=== PATIENT | female | born 1960 | race Caucasian/White ===

== ENCOUNTER 2016-12-14 11:24 | Inpatient (IN) | payer MEDICARE, MEDICAID ==
[2016-12-14 11:55] LABS: AUTOMATED BASOPHIL 0.5 % (0-2); AUTOMATED LYMPH 11.8 % (17-44); AUTOMATED NEUTROPHIL 79.7 % (45-76); MPV 8.4 fL (7.4-10.4)
[2016-12-14 12:04] LABS: BLOOD UREA NITROGEN 25 MG/DL (7-17); CALC CORRECTED 9.3 MG/DL (8.4-10.2); CALCIUM 9.2 MG/DL (8.4-10.2); CALCULATED OSMOLALITY 278 MOs/Kg (270-290); CHLORIDE 106 mEq/L (98-107); GLUCOSE 73 MG/DL (70-99); SODIUM LEVEL 143 mEq/L (137-146); TOTAL PROTEIN 6.8 G/DL (6.3-8.2)
[2016-12-14 12:10] LABS: PARTIAL THROMB. TIME 23.6 SEC (22-35)
--- NOTE | 2016-12-14 12:49 | DIRPT ---
CLINICAL DATA: Intermittent midsternal chest pain for 2 days. Initial encounter. EXAM: PORTABLE CHEST 1 VIEW COMPARISON: PA and lateral chest 09/19/2016. FINDINGS: The lungs are clear. Heart size is normal. There is no pneumothorax or pleural effusion. No focal bony abnormality. IMPRESSION: Negative chest. Electronically Signed By: Matthew Tinsley M.D. On: 12/14/2016 12:47
--- NOTE | 2016-12-14 12:53 | EDPRACDOC ---
- History of Present Illness HPI: HX OF CAD WITH STENTS IN 2005; CATH LAST YEAR IN DEC; TRYING TO LOCATE CATH REPORT. CONTACTED CARDS TO SEE. <Jd Pitt - Last Filed: 12/14/16 13:38> - General Information Information Source: Patient, Digital Marketing Analyst Mode of Arrival: Ambulance - History of Present Illness Onset: 2 DAYS HPI: PT PRESENTS TODAY WITH INTERMITTENT SUBSTERNAL CHEST PAIN X 2 DAYS. PT STATES THAT SHE WAS AT WORK, WHEN SHE FELT VERY NAUSEATED AND THEN DEVELOPED SUBSTERNAL CHEST PRESSURE THAT "SOMETIMES" RADIATES DOWN LEFT ARM. ASSOCIATED SHOB. EPISODES LASTED ABOUT 1 MIN DURATION. PT HAS PMH OF STENT PLACEMENT IN [place] IN [address]. [address] AGUILAR. ALSO PMH OF DM, HLD, SMOKER, HTN. STATES CP AT THIS TIME. DOES NOT APPEAR TO BE IN ACUTE DISTRESS. Chest Pain Location: Reports: Substernal Pain Radiation: Reports: Arm (L) Symptoms Occur: Reports: Suddenly Cardiac Risk Factors: Reports: Smoker, Hyperlipidemia, Hypertension, Diabetes Cardiac History of: Reports: Similar Pain in Past, [place], Cardiac Cath, Stent PE Risk Factors: Reports: None Medications within 24 Hours: Reports: Aspirin, Nitro Prehospital Care: Reports: None Pain Came On: Reports: Suddenly Pain Status: Present Now Pain Description: Reports: Pressure Pain Severity: Moderate Pain Worsens With: Reports: Nothing Pain Improves With: Reports: Nothing Associated Signs and Symptoms: Reports: SOB, Nausea <Rosmery Anthony - Last Filed: 12/14/16 13:41> - General Information Chief Complaint: Chest Pain Stated Complaint: CHEST PAIN Time Seen by Provider: 12/14/16 12:08 Home Medications: Home Medications Clopidogrel Bisulfate [Plavix] 75 mg PO DAILY 10/08/12 Furosemide [Lasix] 40 mg PO BID 10/08/12 Insulin Detemir [Levemir] 80 units SQ BID 10/08/12 Isosorbide Mononitrate [Monoket] 20 mg PO BID 10/08/12 Lisinopril [Zestril] 5 mg PO DAILY 10/08/12 Ranolazine [Ranexa] 500 mg PO BID 04/27/13 Duloxetine [Cymbalta] 60 mg PO DAILY 11/08/13 Docusate Sodium [Colace] 100 mg PO HS 01/09/14 Aspirin (Enteric Coated) [Halfprin] 81 mg PO DAILY 02/08/14 Vitamins, Multiple [Unicap] 1 cap PO DAILY 02/08/14 Atenolol [Tenormin] 50 mg PO QHS 10/31/14 Montelukast Sodium [Singulair] 10 mg PO HS 04/10/15 Cholecalciferol (Vitamin D3) [D3-2000] 2,000 unit PO DAILY 07/12/15 Albuterol Sulfate [Proair Hfa] 2 puff INH Q4-6H PRN 05/29/16 Atorvastatin Calcium [Lipitor] 40 mg PO QHS 05/29/16 Ezetimibe [Zetia] 10 mg PO QHS 05/29/16 Lactobacillus Combo No.10 [Probiotic] 1 cap PO DAILY 05/29/16 Ranitidine [Zantac] 150 mg PO BID 05/29/16 Tramadol HCl [Ultram] 50 mg PO HS PRN 05/29/16 Tizanidine HCl [Zanaflex] 4 mg PO TID PRN 07/04/16 Allopurinol [Zyloprim] 100 mg PO Q48H 12/14/16 Allergies/Adverse Reactions: Allergies Allergy/AdvReac Type Severity Reaction Status Date / Time levofloxacin [From Levaquin] Allergy Intermediate Rash-Locali Verified 12/14/16 11:46 zed prednisone [Prednisone] Allergy Intermediate Hives/BP Verified 12/14/16 11:46 Rises niacin AdvReac Intermediate Upset Verified 12/14/16 11:46 [From Niaspan Stomach Extended-Release] [place]-3 acid Ethyl Esters AdvReac Intermediate Upset Verified 12/14/16 11:46 [From Lovaza] Stomach FISH OIL AdvReac Intermediate Upset Uncoded 12/14/16 11:46 Stomach ED Past Medical History - History Reviewed Yes Nurses notes reviewed and agree except as marked - Patient Medical History Cardiac History: Reports: Coronary Artery Disease, Hypertension, Congestive Heart Failure, Heart Attack, Cardiac Catheterization (STENTS X 2), Hypercholesterolemia, Syncope (2 weeks ago) Respiratory History: Reports: Cough. Denies: Asthma, COPD GI/ History: Reports: Renal Failure, Gastroesophageal Reflux. Denies: Urinary Tract Infection Psychological History: Reports: Anxiety. Denies: Depression, Substance Use Disorder Systemic History: Reports: Anemia (AT YOUNG AGE), Diabetes. Denies: Cancer Additional Past Medical History: CHRONIC PAIN Surgical History: Reports: Appendectomy, Cholecystectomy, Hysterectomy, Cardiac Catheterization (STENTS X 2), Tonsillectomy/Adnoidectomy - Family Medical History Reports: Hypertension, Diabetes, Cardiac Disorders. Denies: Cancer, Stroke - Social Medical History Smoking Status: Heavy tobacco smoker (5 or more cigarettes/day or daily pipe/ cigar) Social History: Denies: Substance Use Disorder <Rosmery Anthony - Last Filed: 12/14/16 13:41> EDM Review of Systems - Review of Systems ROS Negative Except as Marked: Yes All systems reviewed and were negative except as marked Constitutional: No Symptoms Reported Respiratory: Shortness of Breath Cardiovascular: Chest Pain Gastrointestinal: Nausea Genitourinary: No Symptoms Reported Neurological: No Symptoms Reported Musculoskeletal: No Symptoms Reported Integumentary: No Symptoms Reported <Rosmery Anthony - Last Filed: 12/14/16 13:41> - Physical Exam Last recorded Vital Signs: Last Vital Signs Temp 98.4 F 12/14/16 11:35 Pulse 65 12/14/16 13:05 Resp 18 12/14/16 13:05 BP 116/61 12/14/16 13:05 Pulse Ox 94 12/14/16 13:05 Oxygen Pulse Oxygen Saturation 94 O2 Device Oxygen Flow Rate Fraction of Inspired Oxygen ( FIO2) <Jd Pitt - Last Filed: 12/14/16 13:38> - Physical Exam Constitutional: Alert (Awake), No apparent distress Oriented to: Time, Person, Place Last recorded Vital Signs: Last Vital Signs Temp 98.4 F 12/14/16 11:35 Pulse 63 12/14/16 12:35 Resp 18 12/14/16 12:35 BP 106/61 12/14/16 12:35 Pulse Ox 94 12/14/16 12:35 Oxygen Pulse Oxygen Saturation 94 O2 Device Oxygen Flow Rate Fraction of Inspired Oxygen ( FIO2) - HEENT Head: Normal Eye Exam: Normal Neck: Normal, Denies Pain, Midline - Respiratory/Cardiovascular Respiratory: Rales (BIBASILAR) Cardiovascular: Normal - GI Palpation: Normal Tenderness: Non tender - Musculoskeletal Back: Normal Extremities: Normal - Integumentary Skin: Normal Lymphatics: Normal - Neurologic Cerebellar: Normal Mood Description: Normal Thought: Coherent Perception: Normal <Gabrielle,Rosmery K - Last Filed: 12/14/16 13:41> ED Chest Pain Exam - Respiratory/Cardiovascular Respiratory: Normal - CTA Cardiovascular/Chest: Normal Radial Pulse: Normal Chest Palpation: Normal <GabrielleRosmery K - Last Filed: 12/14/16 13:41> - Results 12/14/16 11:35 12/14/16 11:35 WBC 12.9 xk/uL (3.8-10.8) H 12/14/16 11:35 RBC 4.13 xM/uL (4.20-5.40) L 12/14/16 11:35 Hgb 13.0 g/dL (12.0-16.0) 12/14/16 11:35 Hct 38.2 % (36-47) 12/14/16 11:35 MCV 93 fL (81-99) 12/14/16 11:35 MCH 31.5 pg (27-32) 12/14/16 11:35 MCHC 34.0 g/dl (33-36) 12/14/16 11:35 RDW 14.1 % (11.5-14.5) 12/14/16 11:35 Plt Count 258 xk/uL (130-400) 12/14/16 11:35 MPV 8.4 fL (7.4-10.4) 12/14/16 11:35 Neut % (Auto) 79.7 % (45-76) H 12/14/16 11:35 Lymph % (Auto) 11.8 % (17-44) L 12/14/16 11:35 [place] % (Auto) 7.0 % (3-10) 12/14/16 11:35 Eos % (Auto) 1.0 % (0-5) 12/14/16 11:35 Baso % (Auto) 0.5 % (0-2) 12/14/16 11:35 Absolute Neuts (auto) 10.19 xk/uL (1.7-8.2) H 12/14/16 11:35 Absolute Lymphs (auto) 1.42 xk/uL (0.65-4.75) 12/14/16 11:35 PT 10.1 SEC (9.2-11.2) 12/14/16 11:35 INR 1.0 12/14/16 11:35 APTT 23.6 SEC (22-35) 12/14/16 11:35 Sodium 143 mEq/L (137-146) 12/14/16 11:35 Potassium 4.1 mEq/L (3.5-5.1) 12/14/16 11:35 Chloride 106 mEq/L (98-107) 12/14/16 11:35 Carbon Dioxide 30 mMOL/L (22-33) 12/14/16 11:35 Anion Gap 11 mEq/L (8-16) 12/14/16 11:35 BUN 25 MG/DL (7-17) H 12/14/16 11:35 Creatinine 1.20 MG/DL (0.52-1.04) H 12/14/16 11:35 Estimated GFR (MDRD) 46 mL/min (>=60) L 12/14/16 11:35 Glucose 73 MG/DL (70-99) 12/14/16 11:35 Calculated Osmolality 278 MOs/Kg (270-290) 12/14/16 11:35 Calcium 9.2 MG/DL (8.4-10.2) 12/14/16 11:35 Corrected Calcium 9.3 MG/DL (8.4-10.2) 12/14/16 11:35 Total Bilirubin 0.5 MG/DL (0.2-1.3) 12/14/16 11:35 AST 32 IU/L (14-36) 12/14/16 11:35 ALT 49 IU/L (9-52) 12/14/16 11:35 Alkaline Phosphatase 82 IU/L (38-126) 12/14/16 11:35 Troponin I < 0.01 ng/mL (<.04) 12/14/16 11:35 Jxb-J-Hfvxiuhqgos Pept 521 pg/mL (0-900) 12/14/16 11:35 Total Protein 6.8 G/DL (6.3-8.2) 12/14/16 11:35 Albumin 3.9 G/DL (3.5-5.0) 12/14/16 11:35 Lab Results 12/14/16 12/14/16 12/14/16 11:35 11:35 11:35 WBC 12.9 H RBC 4.13 L Hgb 13.0 Hct 38.2 MCV 93 MCH 31.5 MCHC 34.0 RDW 14.1 Plt Count 258 MPV 8.4 Neut % (Auto) 79.7 H Lymph % (Auto) 11.8 L [place] % (Auto) 7.0 Eos % (Auto) 1.0 Baso % (Auto) 0.5 Absolute Neuts (auto) 10.19 H Absolute Lymphs (auto) 1.42 PT 10.1 INR 1.0 APTT 23.6 Sodium 143 Potassium 4.1 Chloride 106 Carbon Dioxide 30 Anion Gap 11 BUN 25 H Creatinine 1.20 H Estimated GFR (MDRD) 46 L Glucose 73 Calculated Osmolality 278 Calcium 9.2 Corrected Calcium 9.3 Total Bilirubin 0.5 AST 32 ALT 49 Alkaline Phosphatase 82 Troponin I < 0.01 Yrf-G-Ltmzivsalss Pept 521 Total Protein 6.8 Albumin 3.9 Laboratory Results - last 24 hr 12/14/16 12/14/16 12/14/16 11:35 11:35 11:35 WBC 12.9 H RBC 4.13 L Hgb 13.0 Hct 38.2 MCV 93 MCH 31.5 MCHC 34.0 RDW 14.1 Plt Count 258 MPV 8.4 Neut % (Auto) 79.7 H Lymph % (Auto) 11.8 L [place] % (Auto) 7.0 Eos % (Auto) 1.0 Baso % (Auto) 0.5 Absolute Neuts (auto) 10.19 H Absolute Lymphs (auto) 1.42 PT 10.1 INR 1.0 APTT 23.6 Sodium 143 Potassium 4.1 Chloride 106 Carbon Dioxide 30 Anion Gap 11 BUN 25 H Creatinine 1.20 H Estimated GFR (MDRD) 46 L Glucose 73 Calculated Osmolality 278 Calcium 9.2 Corrected Calcium 9.3 Total Bilirubin 0.5 AST 32 ALT 49 Alkaline Phosphatase 82 Troponin I < 0.01 Hcv-C-Omfecyywaiy Pept 521 Total Protein 6.8 Albumin 3.9 Laboratory Results 12/14/16 11:35 12/14/16 11:35 <Jd Pitt - Last Filed: 12/14/16 13:38> - Action ASA given in the ED: No - Results 12/14/16 11:35 12/14/16 11:35 WBC 12.9 xk/uL (3.8-10.8) H 12/14/16 11:35 RBC 4.13 xM/uL (4.20-5.40) L 12/14/16 11:35 Hgb 13.0 g/dL (12.0-16.0) 12/14/16 11:35 Hct 38.2 % (36-47) 12/14/16 11:35 MCV 93 fL (81-99) 12/14/16 11:35 MCH 31.5 pg (27-32) 12/14/16 11:35 MCHC 34.0 g/dl (33-36) 12/14/16 11:35 RDW 14.1 % (11.5-14.5) 12/14/16 11:35 Plt Count 258 xk/uL (130-400) 12/14/16 11:35 MPV 8.4 fL (7.4-10.4) 12/14/16 11:35 Neut % (Auto) 79.7 % (45-76) H 12/14/16 11:35 Lymph % (Auto) 11.8 % (17-44) L 12/14/16 11:35 [place] % (Auto) 7.0 % (3-10) 12/14/16 11:35 Eos % (Auto) 1.0 % (0-5) 12/14/16 11:35 Baso % (Auto) 0.5 % (0-2) 12/14/16 11:35 Absolute Neuts (auto) 10.19 xk/uL (1.7-8.2) H 12/14/16 11:35 Absolute Lymphs (auto) 1.42 xk/uL (0.65-4.75) 12/14/16 11:35 PT 10.1 SEC (9.2-11.2) 12/14/16 11:35 INR 1.0 12/14/16 11:35 APTT 23.6 SEC (22-35) 12/14/16 11:35 Sodium 143 mEq/L (137-146) 12/14/16 11:35 Potassium 4.1 mEq/L (3.5-5.1) 12/14/16 11:35 Chloride 106 mEq/L (98-107) 12/14/16 11:35 Carbon Dioxide 30 mMOL/L (22-33) 12/14/16 11:35 Anion Gap 11 mEq/L (8-16) 12/14/16 11:35 BUN 25 MG/DL (7-17) H 12/14/16 11:35 Creatinine 1.20 MG/DL (0.52-1.04) H 12/14/16 11:35 Estimated GFR (MDRD) 46 mL/min (>=60) L 12/14/16 11:35 Glucose 73 MG/DL (70-99) 12/14/16 11:35 Calculated Osmolality 278 MOs/Kg (270-290) 12/14/16 11:35 Calcium 9.2 MG/DL (8.4-10.2) 12/14/16 11:35 Corrected Calcium 9.3 MG/DL (8.4-10.2) 12/14/16 11:35 Total Bilirubin 0.5 MG/DL (0.2-1.3) 12/14/16 11:35 AST 32 IU/L (14-36) 12/14/16 11:35 ALT 49 IU/L (9-52) 12/14/16 11:35 Alkaline Phosphatase 82 IU/L (38-126) 12/14/16 11:35 Troponin I < 0.01 ng/mL (<.04) 12/14/16 11:35 Dzv-B-Uiwolhgqqez Pept 521 pg/mL (0-900) 12/14/16 11:35 Total Protein 6.8 G/DL (6.3-8.2) 12/14/16 11:35 Albumin 3.9 G/DL (3.5-5.0) 12/14/16 11:35 Lab Results 12/14/16 12/14/16 12/14/16 11:35 11:35 11:35 WBC 12.9 H RBC 4.13 L Hgb 13.0 Hct 38.2 MCV 93 MCH 31.5 MCHC 34.0 RDW 14.1 Plt Count 258 MPV 8.4 Neut % (Auto) 79.7 H Lymph % (Auto) 11.8 L [place] % (Auto) 7.0 Eos % (Auto) 1.0 Baso % (Auto) 0.5 Absolute Neuts (auto) 10.19 H Absolute Lymphs (auto) 1.42 PT 10.1 INR 1.0 APTT 23.6 Sodium 143 Potassium 4.1 Chloride 106 Carbon Dioxide 30 Anion Gap 11 BUN 25 H Creatinine 1.20 H Estimated GFR (MDRD) 46 L Glucose 73 Calculated Osmolality 278 Calcium 9.2 Corrected Calcium 9.3 Total Bilirubin 0.5 AST 32 ALT 49 Alkaline Phosphatase 82 Troponin I < 0.01 Jug-E-Yxmyfavutwo Pept 521 Total Protein 6.8 Albumin 3.9 Laboratory Results - last 24 hr 12/14/16 12/14/16 12/14/16 11:35 11:35 11:35 WBC 12.9 H RBC 4.13 L Hgb 13.0 Hct 38.2 MCV 93 MCH 31.5 MCHC 34.0 RDW 14.1 Plt Count 258 MPV 8.4 Neut % (Auto) 79.7 H Lymph % (Auto) 11.8 L [place] % (Auto) 7.0 Eos % (Auto) 1.0 Baso % (Auto) 0.5 Absolute Neuts (auto) 10.19 H Absolute Lymphs (auto) 1.42 PT 10.1 INR 1.0 APTT 23.6 Sodium 143 Potassium 4.1 Chloride 106 Carbon Dioxide 30 Anion Gap 11 BUN 25 H Creatinine 1.20 H Estimated GFR (MDRD) 46 L Glucose 73 Calculated Osmolality 278 Calcium 9.2 Corrected Calcium 9.3 Total Bilirubin 0.5 AST 32 ALT 49 Alkaline Phosphatase 82 Troponin I < 0.01 Spg-L-Inirckcmlfl Pept 521 Total Protein 6.8 Albumin 3.9 Laboratory Results 12/14/16 11:35 12/14/16 11:35 - EKG EKG #1 EKG Time: 11:33 -: Yes EKG interpreted by me Rate: bpm: 60 [place]: Normal Rhythm: NSR Block: None Hypertrophy: None ST: Normal <Rosmery Anthony - Last Filed: 12/14/16 13:41> <Jd Pitt - Last Filed: 12/14/16 13:38> Decision Time to Discharge: 13:40 - Departure Disposition: Admit IP To This Hospital Decision to Admit Time: 13:41 Decision to admit date: 12/14/16 Decision to admit: from ED - Physician Consulted Cardiology Time Called: 13:41 Provider Called: Jarocho Siu Time Coach Returned Call: 13:41 <Rosmery Anthony - Last Filed: 12/14/16 13:41> - Departure Condition: Stable Final Diagnosis: Acute coronary syndrome Instructions: Chest Pain (ED) Referrals: Barb Carbajal MD [Primary Care Provider] - One Week Prescriptions: No Action Lisinopril [Zestril] 5 mg PO DAILY Insulin Detemir [Levemir] 80 units SQ BID Furosemide [Lasix] 40 mg PO BID Isosorbide Mononitrate [Monoket] 20 mg PO BID Clopidogrel Bisulfate [Plavix] 75 mg PO DAILY Ranolazine [Ranexa] 500 mg PO BID Duloxetine [Cymbalta] 60 mg PO DAILY Docusate Sodium [Colace] 100 mg PO HS Aspirin (Enteric Coated) [Halfprin] 81 mg PO DAILY Vitamins, Multiple [Unicap] 1 cap PO DAILY Atenolol [Tenormin] 50 mg PO QHS Montelukast Sodium [Singulair] 10 mg PO HS Cholecalciferol (Vitamin D3) [D3-2000] 2,000 unit PO DAILY Ranitidine [Zantac] 150 mg PO BID Ezetimibe [Zetia] 10 mg PO QHS Albuterol Sulfate [Proair Hfa] 2 puff INH Q4-6H PRN PRN Reason: Shortness Of Breath Lactobacillus Combo No.10 [Probiotic] 1 cap PO DAILY Atorvastatin Calcium [Lipitor] 40 mg PO QHS Tramadol HCl [Ultram] 50 mg PO HS PRN PRN Reason: Pain Tizanidine HCl [Zanaflex] 4 mg PO TID PRN PRN Reason: Muscle Spasms Allopurinol [Zyloprim] 100 mg PO Q48H
[2016-12-14] MEDS ORDERED: NS 1,000 ML IV ONE (12:58)
[2016-12-14] MEDS ORDERED: MORPHINE 4 MG/ML INJECTION IV ONE (12:58)
[2016-12-14] MEDS ORDERED: ONDANSETRON HCL 4 MG/2 ML VIAL IV ONE (13:04)
[2016-12-14] MEDS ORDERED: METOPROLOL TARTRATE 25 MG TAB PO ONE (13:34)
[2016-12-14] MEDS ORDERED: ASPIRIN 325 MG TAB PO ONE (13:34)
[2016-12-14] MEDS ORDERED: NITROGLYCERINE 2 % OINTMENT PACK TOP ONE (13:34)
[2016-12-14] MEDS ORDERED: ENOXAPARIN 80 MG/0.8 ML PFS SQ ONE (14:00)
[2016-12-14] MEDS ORDERED: TIZANIDINE HCL 4 MG PO PRN (14:17)
[2016-12-14] MEDS ORDERED: ALBUTEROL 6.7 GM MDI INH PRN (14:17)
[2016-12-14] MEDS ORDERED: TRAMADOL HCL 50 MG TAB PO PRN (14:17)
--- NOTE | 2016-12-14 14:22 | PCM.CARDCO ---
Consultation Date: 12/14/16 Requesting Physician: Jd Pitt Laborer [place]: Jarocho Siu - History of Present Illness Patient is a 56 years old woman with hypertension and diabetes coronary artery disease apparently in 2005 she had stents implanted to some of her artery I do not have data regarding that intervention. She had another episode of chest pain in December of last year she end up going to [facility] cardiac catheterization was done she was discovered to have completely occluded small nondominant right coronary artery and no intervention was done she was also find to have 40% lad 50% obtuse marginal branch. She presented to the hospital today of because of having chest pain. Apparently yesterday she was sitting and started having chest heaviness as she described no shortness of breath no sweating associated with this sensation she took 3 nitroglycerin and that sensation went away. Then she went to sleep. When she woke up she still got a little tightness in the chest. She did not do anything about it however. She eventually end up going to sleep and did quite well this morning she woke up and she was still having some sensation that is why she decided to come to the hospital. She described it in. Of last month or 2 she had been weak tired exhausted and fairly easily getting short of breath while walking. There is no dizziness no passing out. No palpitations. - Past Medical and Surgical History Cardiac History: Reports: Coronary Artery Disease, Hypertension, Congestive Heart Failure, Heart Attack, Cardiac Catheterization (STENTS X 2), Hypercholesterolemia, Syncope (2 weeks ago) Respiratory History: Reports: Cough. Denies: Asthma, COPD GI/ History: Reports: Renal Failure, Gastroesophageal Reflux. Denies: Urinary Tract Infection Systemic History: Reports: Anemia (AT YOUNG AGE), Diabetes. Denies: Cancer Psychological History: Reports: Anxiety. Denies: Depression, Substance Use Disorder Past Surgical History: Reports: Appendectomy, Cholecystectomy, Hysterectomy, Cardiac Catheterization (STENTS X 2), Tonsillectomy/Adnoidectomy Allergies levofloxacin [From Levaquin] Allergy (Intermediate, Verified 12/14/16 11:46) Rash-Localized prednisone [Prednisone] Allergy (Intermediate, Verified 12/14/16 11:46) Hives/BP Rises CAUSES BP TO RISE, HIVES niacin [From Niaspan Extended-Release] Adverse Reaction (Intermediate, Verified 12/14/16 11:46) Upset Stomach "upset stomach" [place]-3 acid Ethyl Esters [From Lovaza] Adverse Reaction (Intermediate, Verified 12/14/16 11:46) Upset Stomach 'MAKES ME SICK' FISH OIL Adverse Reaction (Intermediate, Uncoded 12/14/16 11:46) Upset Stomach 'MAKES ME SICK' Home Medications Clopidogrel Bisulfate [Plavix] 75 mg PO DAILY 10/08/12 Furosemide [Lasix] 40 mg PO BID 10/08/12 Insulin Detemir [Levemir] 80 units SQ BID 10/08/12 Isosorbide Mononitrate [Monoket] 20 mg PO BID 10/08/12 Lisinopril [Zestril] 5 mg PO DAILY 10/08/12 Ranolazine [Ranexa] 500 mg PO BID 04/27/13 Duloxetine [Cymbalta] 60 mg PO DAILY 11/08/13 Docusate Sodium [Colace] 100 mg PO HS 11/26/13 Aspirin (Enteric Coated) [Halfprin] 81 mg PO DAILY 02/08/14 Vitamins, Multiple [Unicap] 1 cap PO DAILY 02/08/14 Atenolol [Tenormin] 50 mg PO QHS 10/31/14 Montelukast Sodium [Singulair] 10 mg PO HS 04/10/15 Cholecalciferol (Vitamin D3) [D3-2000] 2,000 unit PO DAILY 07/12/15 Albuterol Sulfate [Proair Hfa] 2 puff INH Q4-6H PRN 05/29/16 Atorvastatin Calcium [Lipitor] 40 mg PO QHS 05/29/16 Ezetimibe [Zetia] 10 mg PO QHS 05/29/16 Lactobacillus Combo No.10 [Probiotic] 1 cap PO DAILY 05/29/16 Ranitidine [Zantac] 150 mg PO BID 05/29/16 Tramadol HCl [Ultram] 50 mg PO HS PRN 05/29/16 Tizanidine HCl [Zanaflex] 4 mg PO TID PRN 07/04/16 Allopurinol [Zyloprim] 100 mg PO Q48H 12/14/16 - Social History Travel Outside of [place] in the Last 3 Months?: No Smoking Status: Heavy tobacco smoker (5 or more cigarettes/day or daily pipe/ cigar) Social History: Denies: Substance Use Disorder - Family History Reports: Hypertension, Diabetes, Cardiac Disorders. Denies: Cancer, Stroke - Review of Systems Constitutional: No Symptoms Reported - Physical Exam Constitutional: Alert (Awake), No apparent distress Oriented to: Time, Person, Place Exam: Last Vital Signs Temp 98.4 F 12/14/16 11:35 Pulse 73 12/14/16 14:14 Resp 18 12/14/16 13:35 BP 122/76 12/14/16 14:14 Pulse Ox 94 12/14/16 13:35 Intake & Output 12/13/16 12/14/16 12/14/16 23:59 07:59 15:59 Patient's weight 69.4 kg - HEENT Head: Normal Eye: Normal - Respiratory/Cardiovascular Respiratory: Normal - CTA - GI Palpation: Normal Tenderness: Non tender - Musculoskeletal Back: Normal Extremities: Normal - Integumentary Skin: Normal Lymphatics: Normal - Neurologic Cerebellar: Normal Mood Description: Normal Thought: Coherent Perception: Normal - Other Exam Other Exam Findings: General Appearance: Well developed. Well nourished. In no acute distress. Lungs: Chest was not overinflated. Clear to auscultation. Cardiovascular: Jugular Venous Distention: JVD not increased. Heart Rate And Rhythm: Normal. Heart Sounds: Normal. Murmurs: No murmurs were heard. Carotid Arteries: Carotid pulses were normal. No bruit in the carotid artery. Edema: Not present. Lower extremities pulses normal (including femoral popliteal and dorsalis pedis) . Musculoskeletal System: General/bilateral: No cyanosis of the fingers. Neurological: Oriented to time, place, and person. Nails: No clubbing of the fingernails. - Lab Results Laboratory Results - last 24 hr 12/14/16 12/14/16 12/14/16 11:35 11:35 11:35 WBC 12.9 H RBC 4.13 L Hgb 13.0 Hct 38.2 MCV 93 MCH 31.5 MCHC 34.0 RDW 14.1 Plt Count 258 MPV 8.4 Neut % (Auto) 79.7 H Lymph % (Auto) 11.8 L [place] % (Auto) 7.0 Eos % (Auto) 1.0 Baso % (Auto) 0.5 Absolute Neuts (auto) 10.19 H Absolute Lymphs (auto) 1.42 PT 10.1 INR 1.0 APTT 23.6 Sodium 143 Potassium 4.1 Chloride 106 Carbon Dioxide 30 Anion Gap 11 BUN 25 H Creatinine 1.20 H Estimated GFR (MDRD) 46 L Glucose 73 Calculated Osmolality 278 Calcium 9.2 Corrected Calcium 9.3 Total Bilirubin 0.5 AST 32 ALT 49 Alkaline Phosphatase 82 Troponin I < 0.01 Vzr-W-Oorokfndxtu Pept 521 Total Protein 6.8 Albumin 3.9 - Diagnostic Findings Electrocardiogram showed normal sinus rhythm normal P interval normal QRS complex duration morphology, possibility of anterior wall myocardial infarction age undetermined no ST-T segment changes. - Assessment/Plan (1) Acute coronary syndrome I24.9 - ACUTE ISCHEMIC HEART DISEASE, UNSPECIFIED Acute Present on Admission: Yes Comment: Patient is asymptomatic right now. His symptomatology is somewhat concerning luckily 1st biochemical markers are normal she does not have any acute EKG changes. She will be admitted to the hospital I will continue with aspirin I will put her on Lovenox. Will continue with statin beta-tereza. Will collect cardiac enzymes as well as troponin I. If biochemical markers became abnormal she will have cardiac catheterization if not will do stress testing tomorrow. (2) Coronary artery disease involving [place] coronary artery I25.10 - ATHSCL HEART DISEASE OF [place] CORONARY ARTERY W/O ANG PCTRS Chronic N with other forms of angina Comment: Chronic problem. She has no to have completely occluded nondominant right coronary artery however she also had up to 40% narrowing of LAD on last cardiac catheterization from December of last year. She need to be aggressively managed her risk factor need to be aggressively corrected. Will try to keep her blood pressure under control her diabetes best control possible continue with statin she need to quit smoking. Workup for this event is described above. (3) Smoking F17.200 - NICOTINE DEPENDENCE, UNSPECIFIED, UNCOMPLICATED Acute Comment: Obviously she must quit. (4) Diabetes mellitus E11.9 - TYPE 2 DIABETES MELLITUS WITHOUT COMPLICATIONS Chronic Present on Admission: Yes D D D D P D D L C Comment: I will ask Internal Medicine team to address this problem (5) Hypertension I10 - ESSENTIAL (PRIMARY) HYPERTENSION Chronic essential hypertension I10 - Essential (primary) hypertension Comment: Will continue all medications. Will watch her blood pressure and adjust accordingly.
[2016-12-14] MEDS ORDERED: TIZANIDINE 2 MG TAB PO PRN (14:26)
[2016-12-14] MEDS ORDERED: NITROGLYCERINE 0.4 MG TAB SL PRN (14:27)
[2016-12-14] MEDS ORDERED: MORPHINE 2 MG/ML INJECTION IV PRN (14:27)
[2016-12-14] MEDS ORDERED: Pharmacy Order Set Alert SCH (15:00)
[2016-12-14] MEDS ORDERED: INSULIN DETEMIR 100 UNITS/ML PEN SQ SCH (15:00)
[2016-12-14] MEDS ORDERED: Nitroglycerin D5W 50,000 MCG/250 ML IVBOT IV SCH (15:00)
--- NOTE | 2016-12-14 15:12 | HIMCONSMED ---
Consultation Date: 12/14/16 Requesting Physician: Jarocho Peña Consulting Doctor: Rashmi Huddleston Consult Reason: Diabetes Management Patient is a 56 years old woman with hypertension and diabetes coronary artery disease apparently in 2005 she had stents implanted to some of her artery. She had another episode of chest pain in December of last year she end up going to [facility] cardiac catheterization was done she was discovered to have completely occluded small nondominant right coronary artery and no intervention was done she was also find to have 40% lad 50% obtuse marginal branch. She presented to the hospital today of because of having chest pain. Apparently yesterday she was sitting and started having chest heaviness as she described no shortness of breath no sweating associated with this sensation she took 3 nitroglycerin and that sensation went away. Then she went to sleep. When she woke up she still got a little tightness in the chest. She did not do anything about it however. She eventually end up going to sleep and did quite well this morning she woke up and she was still having some sensation that is why she decided to come to the hospital. She described it in. Of last month or 2 she had been weak tired exhausted and fairly easily getting short of breath while walking. There is no dizziness no passing out. No palpitations. I have been asked by Dr. PEÑA to see the patient for diabetes management. She states that her sugars get as high as 350 range but usually run less than 200. I do not see a previous hemoglobin A1c or urinary microalbumin on her in our system. Chief Complaint: Diabetes management - Past Medical and Surgical History Cardiac History: Reports: Coronary Artery Disease, Hypertension, Congestive Heart Failure, Heart Attack, Cardiac Catheterization (STENTS X 2), Hypercholesterolemia, Syncope (2 weeks ago) Respiratory History: Reports: Cough. Denies: Asthma, COPD GI/ History: Reports: Renal Failure, Gastroesophageal Reflux. Denies: Urinary Tract Infection Systemic History: Reports: Anemia (AT YOUNG AGE), Diabetes. Denies: Cancer Psychological History: Reports: Anxiety. Denies: Depression, Substance Use Disorder Past Surgical History: Reports: Appendectomy, Cholecystectomy, Hysterectomy, Cardiac Catheterization (STENTS X 2), Tonsillectomy/Adnoidectomy Allergies levofloxacin [From Levaquin] Allergy (Intermediate, Verified 12/14/16 11:46) Rash-Localized prednisone [Prednisone] Allergy (Intermediate, Verified 12/14/16 11:46) Hives/BP Rises CAUSES BP TO RISE, HIVES niacin [From Niaspan Extended-Release] Adverse Reaction (Intermediate, Verified 12/14/16 11:46) Upset Stomach "upset stomach" [place]-3 acid Ethyl Esters [From Lovaza] Adverse Reaction (Intermediate, Verified 12/14/16 11:46) Upset Stomach 'MAKES ME SICK' FISH OIL Adverse Reaction (Intermediate, Uncoded 12/14/16 11:46) Upset Stomach 'MAKES ME SICK' Home Medications Clopidogrel Bisulfate [Plavix] 75 mg PO DAILY 10/08/12 Furosemide [Lasix] 40 mg PO BID 10/08/12 Insulin Detemir [Levemir] 80 units SQ BID 10/08/12 Isosorbide Mononitrate [Monoket] 20 mg PO BID 10/08/12 Lisinopril [Zestril] 5 mg PO DAILY 10/08/12 Ranolazine [Ranexa] 500 mg PO BID 04/27/13 Duloxetine [Cymbalta] 60 mg PO DAILY 11/08/13 Docusate Sodium [Colace] 100 mg PO HS 11/26/13 Aspirin (Enteric Coated) [Halfprin] 81 mg PO DAILY 02/08/14 Vitamins, Multiple [Unicap] 1 cap PO DAILY 02/08/14 Atenolol [Tenormin] 50 mg PO QHS 10/31/14 Montelukast Sodium [Singulair] 10 mg PO HS 04/10/15 Cholecalciferol (Vitamin D3) [D3-2000] 2,000 unit PO DAILY 07/12/15 Albuterol Sulfate [Proair Hfa] 2 puff INH Q4-6H PRN 05/29/16 Atorvastatin Calcium [Lipitor] 40 mg PO QHS 05/29/16 Ezetimibe [Zetia] 10 mg PO QHS 05/29/16 Lactobacillus Combo No.10 [Probiotic] 1 cap PO DAILY 05/29/16 Ranitidine [Zantac] 150 mg PO BID 05/29/16 Tramadol HCl [Ultram] 50 mg PO HS PRN 05/29/16 Tizanidine HCl [Zanaflex] 4 mg PO TID PRN 07/04/16 Allopurinol [Zyloprim] 100 mg PO Q48H 12/14/16 - Social History Travel Outside of [place] in the Last 3 Months?: No Smoking Status: Heavy tobacco smoker (5 or more cigarettes/day or daily pipe/ cigar) Social History: Denies: Substance Use Disorder - Family History Reports: Hypertension, Diabetes, Cardiac Disorders. Denies: Cancer, Stroke - Review of Systems Constitutional: No Symptoms Reported (No Fever, chills, wt loss/gain, diaphoresis,fatigue/malaise.) Eyes: No Symptoms Reported (No blurry vision, visual changes, eye pain, or eye redness.) Ears: No Symptoms Reported (No ear pain or discharge) Throat/Neck: No Symptoms Reported (No throat pain or swelling.No oropharyngeal lesions or erythema.) Respiratory: No Symptoms Reported (No cough, wheezing, or shortness of breath.) Cardiovascular: Chest Pain Gastrointestinal: No Symptoms Reported (No abdominal pain, nausea, vomiting, diarrhea, constipation, or bloody stool.) Genitourinary: No Symptoms Reported (No dysuria or hematuria.) Neurological: No Symptoms Reported (No headache, dizziness, seizures, or focal weakness.) Musculoskeletal:: No Symptoms Reported Integumentary: No Symptoms Reported (no rashes or lesions) Allergic/Immunologic: No Symptoms Reported (no rashes or lesions) Hematologic: No Symptoms Reported (No chronic anemia, bleeding, or easy bruising.), Other (Lymphatics- no lymph node swelling or pain.) Endocrine: No Symptoms Reported (No thyroid issues, polyuria, or polydipsia.) Psychiatric: No Symptoms Reported (Fully oriented, with normal and appropriate affect.) - Physical Exam Vital Signs: Initial Vitals Temperature 98.4 F 12/14/16 11:35 Pulse Rate 60 12/14/16 11:35 Respiratory Rate 18 12/14/16 11:35 Blood Pressure 136/58 L 12/14/16 11:35 Pulse Oxygen Saturation 95 12/14/16 11:35 Constitutional: No apparent distress, Well nourished, Well appearing Oriented to: Time, Person, Place - HEENT Head: Normal (normocephalic, atraumatic.), Other (No cervical lymphadenopathy. No supraclavicular lymphadenopathy. Neck: No palpable mass, supple , trachea midline.) Eye: Normal (pupils equal, reactive to light, and round; EOMI, Sclera white) Oropharynx: Normal (Pharynx: Moist without exudate,Gums-no swelling, No oropharyngeal lesions or erythema, Mucous membranes are dry.) Nose: No Symptoms Reported (septum midline, Nares patent, without discharge or bleeding.) Respiratory: Normal - CTA (Clear to auscultation bilaterally. No wheezing, rales , rhonchi. Chest wall movements are symmetric. No use of accessory muscles to breathe.) Cardiovascular: Normal (RRR , Normal S1, S2. No murmurs, rubs, or gallops. PMI non-displaced. Carotids: no carotid bruits. No bradycardia or tachycardia. DP pulses 2+ bilaterally.) - GI Auscultation: Normal (normal active sounds) Palpation: Normal (Soft,non distended,nontender. No hepatosplenomegaly.) Tenderness: Non tender (No rebound or guarding) Contreras's Sign: Negative - Musculoskeletal Back: Normal (Non-Tender) Extremities: Normal (Normal tone, DP pulses 2+ bilaterally, No cyanosis or edema bilaterally, FROM bilaterally.) - Integumentary Skin: Normal (Clean, dry, and intact. No rashes. No lesions.) Lymphatics: Normal (No cervical lymphadenopathy. No supraclavicular lymphadenopathy.) - Neurologic Memory Impaired: Normal Motor Function: Normal (Motor 5/5 throughout.Normal tone, Pulses 2+ No cyanosis or edema, FROM) Cranial Nerve: Normal (CN II-XII intact sensation, strength 5/5) Cerebellar: Normal (Babinski: toes downgoing bilaterally. Intact Finger to nose. Sensory grossly intact to light touch. Intact rapid alternating movements bilaterally. No pronator drift.) Mood Description: Normal (Fully oriented. Normal and appropriate affect.) Perception: Normal (Normal and appropriate affect.) - Lab Results Laboratory Results - last 24 hr 12/14/16 12/14/16 12/14/16 11:35 11:35 11:35 WBC 12.9 H RBC 4.13 L Hgb 13.0 Hct 38.2 MCV 93 MCH 31.5 MCHC 34.0 RDW 14.1 Plt Count 258 MPV 8.4 Neut % (Auto) 79.7 H Lymph % (Auto) 11.8 L [place] % (Auto) 7.0 Eos % (Auto) 1.0 Baso % (Auto) 0.5 Absolute Neuts (auto) 10.19 H Absolute Lymphs (auto) 1.42 PT 10.1 INR 1.0 APTT 23.6 Sodium 143 Potassium 4.1 Chloride 106 Carbon Dioxide 30 Anion Gap 11 BUN 25 H Creatinine 1.20 H Estimated GFR (MDRD) 46 L Glucose 73 Calculated Osmolality 278 Calcium 9.2 Corrected Calcium 9.3 Total Bilirubin 0.5 AST 32 ALT 49 Alkaline Phosphatase 82 Troponin I < 0.01 Prl-Z-Jwdzkjuutkh Pept 521 Total Protein 6.8 Albumin 3.9 12/14/16 14:34 WBC RBC Hgb Hct MCV MCH MCHC RDW Plt Count MPV Neut % (Auto) Lymph % (Auto) [place] % (Auto) Eos % (Auto) Baso % (Auto) Absolute Neuts (auto) Absolute Lymphs (auto) PT INR APTT Sodium Potassium Chloride Carbon Dioxide Anion Gap BUN Creatinine Estimated GFR (MDRD) Glucose Calculated Osmolality Calcium Corrected Calcium Total Bilirubin AST ALT Alkaline Phosphatase Troponin I < 0.01 Ubc-Q-Jajngpvryms Pept Total Protein Albumin - Diagnostic Findings PORTABLE CHEST 1 VIEW COMPARISON: PA and lateral chest 09/19/2016. FINDINGS: The lungs are clear. Heart size is normal. There is no pneumothorax or pleural effusion. No focal bony abnormality. IMPRESSION: Negative chest. Electronically Signed By: Matthew Tinsley M.D. On: 12/14/2016 12:47 Electrocardiogram showed normal sinus rhythm normal P interval normal QRS complex duration morphology, possibility of anterior wall myocardial infarction age undetermined no ST-T segment changes. Personally viewed by me. Stress test from December of 2015: NM LEXISCAN CARDIOLITE TECHNIQUE: Cardiolite cardiac stress Test Lexiscan protocol RADIOPHARMACEUTICALS: Eight in 25 mCi TC 99 M Cardiolite COMPARISON: None. FINDINGS: A Cardiolite stress test Lexiscan protocol was performed. The stress portion of the test was supervised by Dr Villalta. I reviewed the images with him. There is fixed defect in inferior lateral wall with mild hypokinesia probable due to scarring. No definite evidence of ischemia. Left ventricle ejection fraction is 44%. Normal contractility. IMPRESSION: There is fixed defect in inferior lateral wall with mild hypokinesia probable due to scarring. No definite evidence of ischemia. Left ventricle ejection fraction is 44%. Normal contractility. Electronically Signed By: Hugo Osorio M.D. On: 01/10/2016 13:19 - Assessment (1) Diabetes mellitus type 2, uncontrolled, with complications E11.8 - TYPE 2 DIABETES MELLITUS WITH UNSPECIFIED COMPLICATIONS; E11.65 - TYPE 2 DIABETES MELLITUS WITH HYPERGLYCEMIA Chronic Present on Admission: Yes Qualifiers: Diabetes mellitus intermediate accountant insulin use: with intermediate accountant use Qualified Code( s): E11.8 - Type 2 diabetes mellitus with unspecified complications; E11.65 - Type 2 diabetes mellitus with hyperglycemia; Z79.4 - MCFP (current) use of insulin Patient reports episodes of hyperglycemia at home. Will check hemoglobin A1c and urinary microalbumin. At present time will continue home dose insulin dosing but will check finger stick blood glucoses a.c. and HS and cover with sliding scale. (2) Chest pain R07.9 - CHEST PAIN, UNSPECIFIED Acute Present on Admission: Yes Qualifiers: Chest pain type: chest pain due to myocardial ischemia Ischemic chest pain type: unstable angina pectoris Qualified Code(s): I20.0 - Unstable angina Patient for evaluation by Dr. PEÑA with serial enzymes EKG and determine a tejeda the next near future regarding stress testing versus cardiac catheterization. (3) UNSTABLE ANGINA I20.0 - UNSTABLE ANGINA Active Present on Admission: Yes Continue to monitor as above. (4) CHF with cardiomyopathy I50.9 - HEART FAILURE, UNSPECIFIED; I42.9 - CARDIOMYOPATHY, UNSPECIFIED Chronic Present on Admission: Yes Patient with known ejection fraction of 44% on stress testing last year cardiomyopathy is likely due to ischemia and hypokinesia from previous UT (5) Hypertension I10 - ESSENTIAL (PRIMARY) HYPERTENSION Chronic Present on Admission: Yes Qualifiers: Hypertension type: essential hypertension Blood pressure is acceptable continue to monitor (6) Smoking F17.200 - NICOTINE DEPENDENCE, UNSPECIFIED, UNCOMPLICATED Acute Present on Admission: Yes Despite her coronary disease patient continues to enjoy smoking will discuss this with her at length in the a.m. once she is settled in her room. - Plan Check fingerstick blood glucoses a.c. and HS cover with sliding scale insulin coverage check hemoglobin A1c and urinary microalbumin. and continue home diabetes medicines. Case Care Discussed with: Patient, Nursing Staff Total Time: 55 minutes Critical Care: No Couseling Time (>50% in counseling/coordination): No
[2016-12-14] MEDS ORDERED: GLUCAGON 1 MG VIAL SQ PRN (15:27)
[2016-12-14] MEDS ORDERED: GLUCOSE (ORAL GEL) 15 GM TUBE PO PRN (15:27)
[2016-12-14] MEDS ORDERED: DEXTROSE 25 GM/50 ML PFS IV PRN (15:27)
[2016-12-14] MEDS: NITROGLYCERINE 2 % OINTMENT PACK TOP SCH (18:29)
[2016-12-14] MEDS: ISOSORBIDE MONONITRATE 20 MG TAB PO SCH (18:30)
[2016-12-14] MEDS: REGULAR INSULIN 100 UNITS/ML - 3 ML VIAL SQ SCH ×2 (18:32→20:13)
[2016-12-14] MEDS: FUROSEMIDE 40 MG TAB PO SCH (18:33)
[2016-12-14 18:34] LABS: CPK TOTAL WITH POSSIBLE MB 49 IU/L (30-134)
[2016-12-14] MEDS ORDERED: Vaccine Screening Complete SCH (19:00)
[2016-12-14] MEDS ORDERED: ACETAMINOPHEN 325 MG/TAB TABLET PO PRN (19:41)
[2016-12-14] MEDS: RANOLAZINE 500 MG EXT RELEASE TAB PO SCH (19:51)
[2016-12-14] MEDS: RANITIDINE 150 MG TAB PO SCH (20:12)
[2016-12-14] MEDS: INSULIN DETEMIR 100 UNITS/ML PEN SQ SCH (20:13)
[2016-12-14] MEDS ORDERED: INSULIN DETEMIR 80 UNIT SQ SCH (21:00)
[2016-12-14] MEDS ORDERED: MONTELUKAST SODIUM 10 MG TAB PO SCH (21:00)
[2016-12-14] MEDS ORDERED: Docusate Sodium 100 MG CAP PO SCH (21:00)
[2016-12-14] MEDS ORDERED: ATENOLOL 50 MG TAB PO SCH (21:00)
[2016-12-14] MEDS ORDERED: ATORVASTATIN 40 MG TAB PO SCH (21:00)
[2016-12-14] MEDS ORDERED: EZETIMIBE 10 MG TAB PO SCH (21:00)
[2016-12-14] MEDS ORDERED: ISOSORBIDE MONONITRATE 20 MG PO SCH (21:00)
[2016-12-14 21:16] LABS: CPK TOTAL WITH POSSIBLE MB 50 IU/L (30-134)
[2016-12-15 01:07] LABS: LEUKOCYTES/URINE NEG (NEGATIVE); NITRITE/URINE NEG (NEGATIVE); URINE OCCULT BLOOD NEG (NEG/TRACE); WBC/URINE 0-2 (0-5)
[2016-12-15 01:08] LABS: CPK TOTAL WITH POSSIBLE MB 47 IU/L (30-134)
[2016-12-15 01:42] LABS: LDL (calc.) 29.2 MG/DL (<100); VLDL (calc.) 47.8 MG/DL (5-40)
[2016-12-15] MEDS ORDERED: ENOXAPARIN 80 MG/0.8 ML PFS SQ SCH (02:00)
[2016-12-15] MEDS: ISOSORBIDE MONONITRATE 20 MG TAB PO SCH (04:10)
[2016-12-15] MEDS: NITROGLYCERINE 2 % OINTMENT PACK TOP SCH ×2 (04:10→11:22)
[2016-12-15] MEDS: REGULAR INSULIN 100 UNITS/ML - 3 ML VIAL SQ SCH ×2 (04:15→11:54)
[2016-12-15 04:48] VITALS: BMI 25.9
[2016-12-15] MEDS ORDERED: SODIUM CHLORIDE 0.9% 10 ML FLUSH FLUSH ONE (08:00)
[2016-12-15] MEDS ORDERED: REGADENOSON 0.4 MG/5 ML SYRINGE IV ONE (08:00)
[2016-12-15] MEDS ORDERED: LACTOBACILLUS COMBO NO 10 PO SCH (09:00)
[2016-12-15] MEDS ORDERED: CLOPIDOGREL 75 MG TAB PO SCH (09:00)
[2016-12-15] MEDS ORDERED: CHOLECALCIFEROL 2000 UNIT PO SCH (09:00)
[2016-12-15] MEDS ORDERED: LISINOPRIL 5 MG TAB PO SCH (09:00)
[2016-12-15] MEDS ORDERED: ALLOPURINOL 100 MG TAB PO SCH (09:00)
[2016-12-15] MEDS ORDERED: DULOXETINE 60 MG CAPSULE PO SCH (09:00)
[2016-12-15 09:01] LABS: AUTOMATED BASOPHIL 0.4 % (0-2); AUTOMATED EOSINOPHIL 1.5 % (0-5); AUTOMATED LYMPH 21.7 % (17-44); AUTOMATED MONOCYTE 7.3 % (3-10); AUTOMATED NEUTROPHIL 69.1 % (45-76); MPV 8.8 fL (7.4-10.4)
[2016-12-15 09:12] LABS: BLOOD UREA NITROGEN 25 MG/DL (7-17); CALCIUM 8.6 MG/DL (8.4-10.2); CALCULATED OSMOLALITY 280 MOs/Kg (270-290); CHLORIDE 108 mEq/L (98-107); GLUCOSE 111 MG/DL (70-99); SODIUM LEVEL 143 mEq/L (137-146)
--- NOTE | 2016-12-15 09:43 | PCM.CARD ---
- Subjective Reason for visit: Follow up chest pain Doing fine denies have any chest pain. Vital Signs: Last Vital Signs Temp 98.3 F 12/15/16 08:00 Pulse 56 L 12/15/16 08:00 Resp 18 12/15/16 08:00 BP 109/59 L 12/15/16 08:00 Pulse Ox 98 12/15/16 08:00 PE: General Appearance: Well developed. Well nourished. In no acute distress. Lungs: Chest was not overinflated. Clear to auscultation. Cardiovascular: Jugular Venous Distention: JVD not increased. Heart Rate And Rhythm: Normal. Heart Sounds: Normal. Murmurs: No murmurs were heard. Carotid Arteries: Carotid pulses were normal. No bruit in the carotid artery. Edema: Not present. Lower extremities pulses normal (including femoral popliteal and dorsalis pedis) . Musculoskeletal System: General/bilateral: No cyanosis of the fingers. Neurological: Oriented to time, place, and person. Nails: No clubbing of the fingernails. Lab/DI Results Reviewed: Laboratory Results - last 24 hr 12/14/16 12/14/16 12/14/16 11:35 11:35 11:35 WBC 12.9 H RBC 4.13 L Hgb 13.0 Hct 38.2 MCV 93 MCH 31.5 MCHC 34.0 RDW 14.1 Plt Count 258 MPV 8.4 Neut % (Auto) 79.7 H Lymph % (Auto) 11.8 L [place] % (Auto) 7.0 Eos % (Auto) 1.0 Baso % (Auto) 0.5 Absolute Neuts (auto) 10.19 H Absolute Lymphs (auto) 1.42 PT 10.1 INR 1.0 APTT 23.6 Sodium 143 Potassium 4.1 Chloride 106 Carbon Dioxide 30 Anion Gap 11 BUN 25 H Creatinine 1.20 H Estimated GFR (MDRD) 46 L Glucose 73 POC Capillary Glucose Hemoglobin A1c Calculated Osmolality 278 Calcium 9.2 Corrected Calcium 9.3 Magnesium Total Bilirubin 0.5 AST 32 ALT 49 Alkaline Phosphatase 82 Creatine Kinase Troponin I < 0.01 Cmp-E-Fwornjmzmfc Pept 521 Total Protein 6.8 Albumin 3.9 Triglycerides Cholesterol LDL Cholesterol, Calc VLDL Cholesterol, Calc HDL Cholesterol Cholesterol/HDL Ratio Urine Color Urine Clarity Urine pH Ur Specific Maria Stein Urine Protein Urine Glucose (UA) Urine Ketones Urine Occult Blood Urine Nitrite Urine Bilirubin Urine Urobilinogen Ur Leukocyte Esterase Urine WBC Ur Epithelial Cells Urine Bacteria 12/14/16 12/14/16 12/14/16 11:35 14:00 14:34 WBC RBC Hgb Hct MCV MCH MCHC RDW Plt Count MPV Neut % (Auto) Lymph % (Auto) [place] % (Auto) Eos % (Auto) Baso % (Auto) Absolute Neuts (auto) Absolute Lymphs (auto) PT INR APTT Sodium Potassium Chloride Carbon Dioxide Anion Gap BUN Creatinine Estimated GFR (MDRD) Glucose POC Capillary Glucose 61 L Hemoglobin A1c 6.9 H Calculated Osmolality Calcium Corrected Calcium Magnesium Total Bilirubin AST ALT Alkaline Phosphatase Creatine Kinase Troponin I < 0.01 Nca-M-Eptxcnknuss Pept Total Protein Albumin Triglycerides Cholesterol LDL Cholesterol, Calc VLDL Cholesterol, Calc HDL Cholesterol Cholesterol/HDL Ratio Urine Color Urine Clarity Urine pH Ur Specific Maria Stein Urine Protein Urine Glucose (UA) Urine Ketones Urine Occult Blood Urine Nitrite Urine Bilirubin Urine Urobilinogen Ur Leukocyte Esterase Urine WBC Ur Epithelial Cells Urine Bacteria 12/14/16 12/14/16 12/14/16 15:12 17:14 17:40 WBC RBC Hgb Hct MCV MCH MCHC RDW Plt Count MPV Neut % (Auto) Lymph % (Auto) [place] % (Auto) Eos % (Auto) Baso % (Auto) Absolute Neuts (auto) Absolute Lymphs (auto) PT INR APTT Sodium Potassium Chloride Carbon Dioxide Anion Gap BUN Creatinine Estimated GFR (MDRD) Glucose POC Capillary Glucose 233 H 176 H Hemoglobin A1c Calculated Osmolality Calcium Corrected Calcium Magnesium Total Bilirubin AST ALT Alkaline Phosphatase Creatine Kinase 49 Troponin I < 0.01 Qil-H-Qdjoifxrpey Pept Total Protein Albumin Triglycerides Cholesterol LDL Cholesterol, Calc VLDL Cholesterol, Calc HDL Cholesterol Cholesterol/HDL Ratio Urine Color Urine Clarity Urine pH Ur Specific Maria Stein Urine Protein Urine Glucose (UA) Urine Ketones Urine Occult Blood Urine Nitrite Urine Bilirubin Urine Urobilinogen Ur Leukocyte Esterase Urine WBC Ur Epithelial Cells Urine Bacteria 12/14/16 12/14/16 12/15/16 20:01 20:50 00:15 WBC RBC Hgb Hct MCV MCH MCHC RDW Plt Count MPV Neut % (Auto) Lymph % (Auto) [place] % (Auto) Eos % (Auto) Baso % (Auto) Absolute Neuts (auto) Absolute Lymphs (auto) PT INR APTT Sodium Potassium Chloride Carbon Dioxide Anion Gap BUN Creatinine Estimated GFR (MDRD) Glucose POC Capillary Glucose 193 H Hemoglobin A1c Calculated Osmolality Calcium Corrected Calcium Magnesium Total Bilirubin AST ALT Alkaline Phosphatase Creatine Kinase 50 Troponin I < 0.01 Nzt-Y-Sbijrvzcdlr Pept Total Protein Albumin Triglycerides Cholesterol LDL Cholesterol, Calc VLDL Cholesterol, Calc HDL Cholesterol Cholesterol/HDL Ratio Urine Color Pale yellow Urine Clarity Clear Urine pH 5.0 Ur Specific Maria Stein 1.005 Urine Protein Neg Urine Glucose (UA) Neg Urine Ketones Neg Urine Occult Blood Neg Urine Nitrite Neg Urine Bilirubin Neg Urine Urobilinogen <2.0 Ur Leukocyte Esterase Neg Urine WBC 0-2 Ur Epithelial Cells Occ Urine Bacteria Few 12/15/16 12/15/16 12/15/16 00:50 00:50 04:14 WBC RBC Hgb Hct MCV MCH MCHC RDW Plt Count MPV Neut % (Auto) Lymph % (Auto) [place] % (Auto) Eos % (Auto) Baso % (Auto) Absolute Neuts (auto) Absolute Lymphs (auto) PT INR APTT Sodium Potassium Chloride Carbon Dioxide Anion Gap BUN Creatinine Estimated GFR (MDRD) Glucose POC Capillary Glucose 100 H Hemoglobin A1c Calculated Osmolality Calcium Corrected Calcium Magnesium Total Bilirubin AST ALT Alkaline Phosphatase Creatine Kinase 47 Troponin I < 0.01 Sdi-L-Uedtqlxitar Pept Total Protein Albumin Triglycerides 239 H Cholesterol 101 LDL Cholesterol, Calc 29.2 VLDL Cholesterol, Calc 47.8 H HDL Cholesterol 24.0 L Cholesterol/HDL Ratio 4.2 Urine Color Urine Clarity Urine pH Ur Specific Maria Stein Urine Protein Urine Glucose (UA) Urine Ketones Urine Occult Blood Urine Nitrite Urine Bilirubin Urine Urobilinogen Ur Leukocyte Esterase Urine WBC Ur Epithelial Cells Urine Bacteria 12/15/16 12/15/16 08:20 08:20 WBC 7.8 RBC 3.86 L Hgb 12.0 Hct 36.0 MCV 93 MCH 31.2 MCHC 33.4 RDW 14.6 H Plt Count 204 MPV 8.8 Neut % (Auto) 69.1 Lymph % (Auto) 21.7 [place] % (Auto) 7.3 Eos % (Auto) 1.5 Baso % (Auto) 0.4 Absolute Neuts (auto) 5.38 Absolute Lymphs (auto) 1.64 PT INR APTT Sodium 143 Potassium 4.5 Chloride 108 H Carbon Dioxide 30 Anion Gap 10 BUN 25 H Creatinine 1.10 H Estimated GFR (MDRD) 51 L Glucose 111 H POC Capillary Glucose Hemoglobin A1c Calculated Osmolality 280 Calcium 8.6 Corrected Calcium Magnesium 2.00 Total Bilirubin AST ALT Alkaline Phosphatase Creatine Kinase Troponin I Kts-X-Bnxqliczbjm Pept Total Protein Albumin Triglycerides Cholesterol LDL Cholesterol, Calc VLDL Cholesterol, Calc HDL Cholesterol Cholesterol/HDL Ratio Urine Color Urine Clarity Urine pH Ur Specific Maria Stein Urine Protein Urine Glucose (UA) Urine Ketones Urine Occult Blood Urine Nitrite Urine Bilirubin Urine Urobilinogen Ur Leukocyte Esterase Urine WBC Ur Epithelial Cells Urine Bacteria - Assessment/Plan (1) Acute coronary syndrome Acute I24.9 - ACUTE ISCHEMIC HEART DISEASE, UNSPECIFIED Present on Admission: Yes Comment/Plan: Chest pain free. EKG no new changes biochemical markers negative. Will do stress test trying to determine if she has significant inducible ischemia. does have chronically occluded small nondominant right coronary artery. In the meantime continue medical management. (2) Coronary artery disease involving nikolai coronary artery Chronic I25.10 - ATHSCL HEART DISEASE OF [place] CORONARY ARTERY W/O ANG PCTRS N with other forms of angina Comment/Plan: Pending stress test to determine the origin of her pain. (3) Smoking Acute F17.200 - NICOTINE DEPENDENCE, UNSPECIFIED, UNCOMPLICATED Present on Admission: Yes Comment/Plan: Obviously must quit. (4) Diabetes mellitus Chronic E11.9 - TYPE 2 DIABETES MELLITUS WITHOUT COMPLICATIONS Present on Admission: Yes D D D D P D D L C Comment/Plan: Follow up by Internal Medicine team and I appreciate their expertise. (5) Hypertension Chronic I10 - ESSENTIAL (PRIMARY) HYPERTENSION Present on Admission: Yes essential hypertension I10 - Essential (primary) hypertension Comment/Plan: Blood pressure appears to be well controlled in the matter of fact we facing situation with low blood pressure.
[2016-12-15] MEDS ORDERED: SESTAMIBI 8 MCI V IV ONE (10:01)
--- NOTE | 2016-12-15 10:18 | CAPUEKG ---
[place], [place] Test Date: 2016-12-15 Pat Name: JOSE CHILDS Department: Room: 446 Gender: Female Harbormaster: : Requested By: Order Number: Reading MD: Jarocho Siu MD Measurements Intervals [place] Rate: 58 P: 48 [place]: 158 QRS: 20 QRSD: 84 T: 36 QT: 438 QTc: 429 Interpretive Statements Sinus bradycardia Otherwise normal ECG Electronically Signed On 12-15-16 10:18:22 EST by Jarocho Siu MD [id number]> [id number]
[2016-12-15] MEDS: INSULIN DETEMIR 100 UNITS/ML PEN SQ SCH (11:18)
[2016-12-15] MEDS: RANITIDINE 150 MG TAB PO SCH (11:19)
[2016-12-15] MEDS: FUROSEMIDE 40 MG TAB PO SCH (11:20)
[2016-12-15 11:36] VITALS: BP 119/65; TEMP 96.5
--- NOTE | 2016-12-15 11:54 | PCM.STRESS ---
Nuclear stress test (Lexiscan): Indication for procedure: Chest pain. Patient was brought to the stress test room in a fasting state. IV was already inserted. The patient got connected to the client relationship executive. Blood pressure was monitored as well as pulse oximetry. Lexiscan was given during in usual fashion. That was followed by injection of radioisotope. Then patient was monitored for about 5 min. Resting heart rate was 61 beats/ min. Resting blood pressure was 118/72 mm of mercury. Resting EKG showed normal sinus rhythm, normal P interval, normal QRS complex duration morphology, no ST-T segment changes. EKG during the infusion of Lexiscan and shortly after showed no diagnostic ST segment changes. Symptoms noted during the infusion and after include mild nausea. Nuclear assessment: Resting imaging showed moderate defect involving basal and midportion of the inferior lateral wall. Stress imaging showed moderate defect involving basal and midportion of the inferior lateral wall, no reversibility as compared to resting images.. Gated imaging revealed normal contractility in all segments. The ejection fraction was 50%. Conclusions: 1. No ischemia seen on this scan. 2. Scar from old myocardial infarction involving inferior lateral wall. 3. Low limits of normal ejection fraction calculated to be of 50%..
[2016-12-15] MEDS: RANOLAZINE 500 MG EXT RELEASE TAB PO SCH (11:55)
[2016-12-15] MEDS ORDERED: PROBIOTIC BLEND TAB PO SCH (12:00)
[2016-12-15] MEDS ORDERED: CHOLECALCIFEROL 1000 UNITS TAB PO SCH (12:00)
[2016-12-15] MEDS ORDERED: VITAMINS, MULTIPLE CAP PO SCH (12:00)
--- NOTE | 2016-12-15 12:03 | PCM.DCS92 ---
- Final/Secondary Discharge Diagnosis (1) Acute coronary syndrome Acute I24.9 - ACUTE ISCHEMIC HEART DISEASE, UNSPECIFIED Present on Admission: Yes Plan/Goal/Comment: Rule out for myocardial infarction. Stress test done today showed no evidence of inducible ischemia. Will continue aspirin Plavix as well as ranolazine and rest of her medications. Will follow up in the office in about 2-3 weeks. (2) Coronary artery disease involving [place] coronary artery Chronic I25.10 - ATHSCL HEART DISEASE OF [place] CORONARY ARTERY W/O ANG PCTRS N with other forms of angina Plan/Goal/Comment: Stress test showed no evidence of ischemia. There is a small area of hypokinesis with fixed defect involving inferior lateral wall. That is representing most likely obtuse marginal branch disease that was noted on last cardiac catheterization. Will continue medical management. (3) Smoking Acute F17.200 - NICOTINE DEPENDENCE, UNSPECIFIED, UNCOMPLICATED Present on Admission: Yes Plan/Goal/Comment: Obviously she must quit. I will talk to her in the office about this even more. (4) Diabetes mellitus Chronic E11.9 - TYPE 2 DIABETES MELLITUS WITHOUT COMPLICATIONS Present on Admission: Yes D D D D P D D L C Plan/Goal/Comment: Continue present medications. (5) Hypertension Chronic I10 - ESSENTIAL (PRIMARY) HYPERTENSION Present on Admission: Yes essential hypertension I10 - Essential (primary) hypertension Plan/Goal/Comment: Blood pressure appears to be well controlled will continue present management. Discharge Disposition: Home Discharge Condition: Stable Cognitive Discharge Status: Unimpaired Fuctional Discharge Status: Independent Physician Follow up/Referrals: Babr Carbajal MD [Primary Care Provider] - One Week Home Medications/ New Prescriptions: No Action Lisinopril [Zestril] 5 mg PO DAILY Insulin Detemir [Levemir] 80 units SQ BID Furosemide [Lasix] 40 mg PO BID Isosorbide Mononitrate [Monoket] 20 mg PO BID Clopidogrel Bisulfate [Plavix] 75 mg PO DAILY Ranolazine [Ranexa] 500 mg PO BID Duloxetine [Cymbalta] 60 mg PO DAILY Docusate Sodium [Colace] 100 mg PO HS Aspirin (Enteric Coated) [Halfprin] 81 mg PO DAILY Vitamins, Multiple [Unicap] 1 cap PO DAILY Atenolol [Tenormin] 50 mg PO QHS Montelukast Sodium [Singulair] 10 mg PO HS Cholecalciferol (Vitamin D3) [D3-2000] 2,000 unit PO DAILY Ranitidine [Zantac] 150 mg PO BID Ezetimibe [Zetia] 10 mg PO QHS Albuterol Sulfate [Proair Hfa] 2 puff INH Q4-6H PRN PRN Reason: Shortness Of Breath Lactobacillus Combo No.10 [Probiotic] 1 cap PO DAILY Atorvastatin Calcium [Lipitor] 40 mg PO QHS Tramadol HCl [Ultram] 50 mg PO HS PRN PRN Reason: Pain Tizanidine HCl [Zanaflex] 4 mg PO TID PRN PRN Reason: Muscle Spasms Allopurinol [Zyloprim] 100 mg PO Q48H Diet at Discharge: Cardiac, 1800 Calorie Activity: No Restrictions Call Office For: Worsening Symptoms - DC Summary Notes Hospital Course Note:: Discharge summary on patient named JOSE CHILDS admitted to [facility] on 12/14/16 by Jarocho Siu MD. Date of discharge is [] . presented to the hospital with chest pain. She does have history of coronary artery disease. She was put on Lovenox aspirin Plavix while in the hospital. She rule out for myocardial infarction stress test was done which showed no evidence of ischemia but showed fixed defect involving inferior lateral wall with overall ejection fraction of 50%. She is being discharged home today with instruction to follow up with us with about 2-3 weeks. She need to let us know if she have any symptoms. Because of her coronary artery disease I doubled the dose of ranolazine from 500 mg 2000 mg twice daily. She will use nitroglycerin on p.r.n. basis. - Physical Exam Vital Signs: Initial Vitals Temperature 98.4 F 12/14/16 11:35 Pulse Rate 60 12/14/16 11:35 Respiratory Rate 18 12/14/16 11:35 Blood Pressure 136/58 L 12/14/16 11:35 Pulse Oxygen Saturation 95 12/14/16 11:35 Exam: General Appearance: Well developed. Well nourished. In no acute distress. Lungs: Chest was not overinflated. Clear to auscultation. Cardiovascular: Jugular Venous Distention: JVD not increased. Heart Rate And Rhythm: Normal. Heart Sounds: Normal. Murmurs: No murmurs were heard. Carotid Arteries: Carotid pulses were normal. No bruit in the carotid artery. Edema: Not present. Lower extremities pulses normal (including femoral popliteal and dorsalis pedis) . Musculoskeletal System: General/bilateral: No cyanosis of the fingers. Neurological: Oriented to time, place, and person. Nails: No clubbing of the fingernails.
[2016-12-15 12:10] VITALS: PULSE 59
[2016-12-15] MEDS ORDERED: RANOLAZINE 500 MG EXT RELEASE TAB PO SCH (21:00)
== END 2016-12-15 12:30 | disposition home or self-care (01) | DRG 311 ==
LOC: ED 11:24 → PCU 15:02
PROVIDERS: ADMIT Internal Medicine Cardiovascular Disease; ATTEND Internal Medicine Cardiovascular Disease
DX: I24.9 Acute ischemic heart disease, unspecified (principal); I50.9 Heart failure, unspecified; I25.10 Atherosclerotic heart disease of native coronary artery without angina pectoris; F17.210 Nicotine dependence, cigarettes, uncomplicated; E11.9 Type 2 diabetes mellitus without complications; I10 Essential (primary) hypertension; I25.2 Old myocardial infarction; Z98.61 Coronary angioplasty status; E78.00 Pure hypercholesterolemia, unspecified; K21.9 Gastro-esophageal reflux disease without esophagitis; F41.9 Anxiety disorder, unspecified; Z88.1 Allergy status to other antibiotic agents; Z88.8 Allergy status to other drugs, medicaments and biological substances; Z79.4 Long term (current) use of insulin; Z79.899 Other long term (current) drug therapy
CPT/HCPCS: 36415; 71010; 78452; 80048; 80053; 80061; 81001; 82043; 82550; 82962; 83036; 83735; 83880; 84484; 85025; 85610; 85730; 87641; 93005; 93017; 96361; 96372; 96374; 96375; 99285; 99406; A4216; A9500; J1650; J2270; J2405; J2785; J3490